=== PATIENT | male | born 1970 | race Caucasian/White ===

== ENCOUNTER 2019-04-28 16:17 | Outpatient (CLI) | payer OTHER ==
[2015-05-11 05:33] VITALS: BP 125/53
[2019-04-28 17:22] LABS: eGFR (Non-African) 39
[2019-04-28 17:23] LABS: A1C 13.5 % (<5.7); HDL 41 mg/dL (>40)
== END 2019-04-28 16:19 ==
LOC: LAB 16:17
PROVIDERS: ATTEND Nurse Practitioner Family
DX: E11.9 Type 2 diabetes mellitus without complications (principal); E78.1 Pure hyperglyceridemia
CPT/HCPCS: 36415; 80053; 80061; 82043; 83036